=== PATIENT | male | born 1970 | race Caucasian/White ===

== ENCOUNTER 2024-09-18 22:12 | Emergency (ER) | payer BC, SELFPAY ==
[2024-09-18 22:17] VITALS: BP 131/83; PULSE 91; RESP 18; TEMP 36.6; O2SAT 96; BMI 39.0
[2024-09-18 23:59] VITALS: BP 109/71; PULSE 90; RESP 16; TEMP 36.8; O2SAT 97
--- NOTE | 2024-09-19 00:24 | ED.EXTPRO ---
HPI - Extremity Problem General Chief complaint: Extremity Problem Stated complaint: R elbow inj Time Seen by Provider: 09/19/24 00:24 Source: patient Mode of arrival: ambulatory Limitations: no limitations History of Present Illness ED Provider: Dr. Sam Morris HPI Narrative: 54-year-old male who presents emergency department for evaluation of infected right olecranon bursitis. Patient states that he fell and landed on his right elbow on 09/07/2024. Patient states that he developed swelling over the elbow but did not have significant pain. He states that on , 09/12/2024 (1 week prior) he developed redness with increased warmth over the elbow. Patient states that on Monday09/15/2024 he had a video consult with his provider and was started on cefadroxil b.i.d. for 7 days. He states he has been taking the medication for 3 days. He did talk to his PCP who recommended that he get seen so he went to an urgent care clinic. They evaluated him and referred him to the emergency department for evaluation. He denied fever, chills, fatigue, weakness, nausea, vomiting or diarrhea. He states that he can move his elbow without any difficulty and he was not having pain. Related Data Previous Rx's ?Medication ?Instructions ?Recorded doxycycline hyclate 100 mg tablet 100 mg PO Q12H 7 days #14 tabs 09/19/24 Allergies Allergy/AdvReac Type Severity Reaction Status Date / Time No Known Allergies Allergy Verified 09/18/24 22:20 [No Known Allergies*] Review of Systems Review of Systems: Yes all other systems are reviewed and are negative PMFSH Social History Social History Advance Directives: No Advance Directives Information Provided: No Do you have a plan to hurt others: No Plan Physical Exam Vital Signs: Vital Signs: Last Vital Signs Temp 98.3 F 09/19/24 00:45 Pulse 90 09/19/24 00:45 Resp 16 09/19/24 00:45 BP 109/71 09/19/24 00:45 Pulse Ox 97 09/19/24 00:45 O2 Del Method Room Air 09/19/24 00:45 BMI result Body Mass Index 39.0 Vital signs were normal Extremity exam: Patient's right elbow is swollen consistent with bursitis, there is increased warmth over the elbow. Patient has nonspecific dermatitis to both extremities which she has a red appearance to them. The dermatitis is not warm to the touch. He has full range of motion of his right elbow with no limitation and no pain. Medications Administered Discontinued Medications Generic Name Dose Route Start Last Admin Trade Name Helen PRN Reason Stop Dose Admin Doxycycline Monohydrate 100 mg 09/19/24 00:34 09/19/24 00:38 Doxycycline Monohydrate 100 Mg Capsule PO 09/19/24 00:35 100 mg ONCE ONE Administration Medical Decision Making Medical Decision Making [facility] Narrative: 54-year-old male with no significant past medical history who fell proximally 2 weeks prior landing in his right elbow and developed a traumatic bursitis, 1 week prior he noticed increased warmth and redness to the Versed and was started on antibiotics 3 days prior. He states that the redness has not gotten worse but has not improved. He did not have any concerning systemic symptoms. His PCP advised him to get re-evaluated and he went to an urgent care clinic and was referred to the emergency department. Vital signs were normal. Physical examination olecranon bursitis with increased warmth compared to the left elbow, he does have chronic erythematous dermatitis of both arms which is not warm to the touch. Differential diagnosis: ?Includes but is not limited to traumatic bursitis, infected bursitis, cellulitis, dermatitis Course: 00:48 The patient's findings are consistent with a traumatic right olecranon bursitis which now appears to be an infectious bursitis. Patient does have chronic, symmetric dermatitis to both upper extremities but I do not think that he was cellulitis at this time. The patient has been on a cephalosporin- cefadroxil for 3 days with no significant improvement however patient does not have adequate coverage for MRSA therefore I added doxycycline 100 mg q.12 hours x7 days to his antibiotic regimen. He was given his 1st dose doxycycline here in the emergency department. Patient was advised to use a heating pad on low 4 times a day to help improve the blood flow to the bursa area. Patient will need to follow-up with our orthopedic providers for re-evaluation and at this time I do not think that the bursa needs to be drained. I I did discuss treatment and follow-up plan with the patient. Admission/Observation Consideration of admission/observation: Escalation of care including admission/observation considered (Yes) Prescription Management I considered prescription management with: Antibiotic (Doxycycline) Discharge Plan Discharge Clinical Impression: Olecranon bursitis, right elbow, Dermatitis, Infected olecranon bursa Patient Disposition: Home, Self-Care Additional Instructions: When you fell earlier in the month, he struck your elbow and caused your bursa to get inflamed (bursitis). This is called a traumatic bursitis. Your elbow is now very warm to the touch and I believe that you have a bacterial infection of the bursa. Complete the course of cefadroxil as prescribed by your provider. I am going to increase your antibiotic coverage and start you on a new medication called doxycycline. Take doxycycline 100 mg, 1 pill every 12 hours for 7 days Use a heating pad on low for 15 minutes 4 times a day to increase the blood flow to the area of your elbow to help the healing process. I want you to follow-up with our orthopedic providers for re-evaluation in 4-5 days. Call their this morning to schedule an appointment Please return to the emergency department if you developed fever, chills, weakness, fatigue or if your elbow is becoming more painful, lower red or swollen Please return to the emergency department if your symptoms get worse or if you develop any symptoms that are concerning to you. Prescriptions: New doxycycline hyclate 100 mg tablet 100 mg PO Q12H 7 Days Qty: 14 0RF Referrals: Denilson Sandy MD [Physician] - 5 days (Traumatic bursitis which now appears to be infected, on cefadroxil x3 days with minimal improvement, I added doxycycline 100 mg b.i.d. x7 days. Needs follow-up in 3-5 days for re-evaluation. ) Interventions: ED Discharge Assessment Last Done: 09/19/24 00:45 Discharge Date/Time: 09/19/24 00:51 Print Language: Hebrew
[2024-09-19] MEDS: Doxycycline Monohydrate 100 MG CAPSULE PO (00:38)
[2024-09-19 00:45] VITALS: BP 109/71; PULSE 90; RESP 16; TEMP 36.8; O2SAT 97
== END 2024-09-19 00:51 | disposition home or self-care (01) ==
PROVIDERS: Emergency Provider Emergency Medicine Emergency Medical Services
DX: M70.21 Olecranon bursitis, right elbow (principal); L30.3 Infective dermatitis; Z79.899 Other long term (current) drug therapy
CPT/HCPCS: 99283; 99284

== ENCOUNTER 2024-09-20 14:17 | Outpatient (AMB) | payer BC, OTHER, SELFPAY ==
[2024-09-20 14:19] VITALS: BP 122/74; PULSE 74; O2SAT 96; BMI 38.9
--- NOTE | 2024-09-20 14:19 | A.OFFPC_ITS ---
Vital Signs 09/20/24 14:19 Height 6 ft Weight 287 lb BMI 38.9 BP 122/74 Blood Pressure Location Lt brachial Position Sitting Pulse 74 Pulse Source Pulse Oximeter Pulse Oximetry (%) 96 Oxygen Delivery Method Room Air Intake Visit Reasons: Rt arm fall/injury Allergies No Known Allergies [No Known Allergies*] Allergy (Verified 09/20/24 14:53) Medication List - Last Reconciled 09/20/24 by Louise Lindsay PA-C doxycycline hyclate 100 mg PO Q12H 7 days Tobacco use date assessed: 09/20/24 Dental Screening Dental Screen Date: 09/20/24 Did you have a dental visit in the last 12 months?: Yes Did you have a dental problem in the last 6 months where you did not have access to dental care?: No Was dental information given to patient?: Patient has dentist HPI Rt arm fall/injury HPI Details 54-year-old male coming to the office fo r the 1st time.? In review of the notes patient was seen in [facility] ED 09/19/2024 for evaluation of infected right olecranon bursitis after a fall on 09/07/2024 patient was started on doxycycline and continued on cefadroxil and advised to follow up with Orthopedics in 4-5 days. Patient states he was seen in the ER and has been continued on both medications. He does continue to have the nonspecific dermatitis on bilateral arms and does state he has sensitive skin so can not use certain lotions on his skin. He has been taking the antibiotics without issue and the swelling, warmth, and pain has gone down. He has not been seen in over 30 years. [facility] Medical History (Updated 09/20/24 @ 15:19 by Louise Lindsay PA-C) Ankle fracture, left Surgical History (Updated 09/20/24 @ 14:56 by Louise Lindsay PA-C) Status post ORIF of fracture of ankle Family History (Updated 09/20/24 @ 14:57 by Louise Lindsay PA-C) Mother Breast cancer Father Multiple sclerosis Social History Housing: House Patient Tobacco Use Status: Current everyday Tobacco user Tobacco use type: Smokeless Tobacco service: No Current occupational status: employed Cognitive needs: No Hearing needs: No Vision needs: No Questionnaire PHQ-9 Over the last 2 weeks, how often have you been bothered by any of the following problems? 1. Little interest or pleasure in doing things: not at all 2. Feeling down, depressed, or hopeless: not at all 3. Trouble falling or staying asleep, or sleeping too much: not at all 4. Feeling tired or having little energy: not at all 5. Poor appetite or overeating: not at all 6. Feeling bad about yourself - or that you are a failure or have let yourself or your family down: not at all 7. Trouble concentrating on things, such as reading the newspaper or watching television: not at all 8. Moving or speaking so slowly that other people could have noticed. Or the opposite - being so fidgety or restless that you have been moving around a lot more than usual: not at all 9. Thoughts that you would be better off or of hurting yourself in some way: not at all Total score: 0 Depression Screening Interpretation: Negative Depression Screening Done: Yes 61704 - PHQ-9 Billing: Yes Source: Developed by Drs. Ranjit Alvarez, Joy Ledezma, Juan R Mcfarlane and colleagues, with an educational umair from [employer]. Thrive Questionnaire Date Thrive assessed: 09/20/24 I am a: Patient What is your living situation today?: I have a steady place to live Within the past 12 months, did the food you bought not last and you didn't have the money to get more?: I choose not to answer this question Within the past 12 months, did you worry whether your food would run out before you got money to buy more?: I choose not to answer this question Do you have trouble paying for medicines?: No Do you have trouble getting transportation to medical appointments?: No Do you have trouble paying your heating and electricity bill?: No Do you have trouble taking care of your child, family member or friend?: No Do you have trouble with day-to-day activities such as bathing, preparing meals, shopping, managing finances, etc.?: No Are you currently unemployed and looking for a job?: No Are you interested in more education?: No Please select the resources that you would like help with: None Currently or been in a relationship where the following occur: I choose not to answer THRIVE Score: 0 AUDIT C Alcohol Use Questionnaire (AUDIT-C) 1. How often do you have a drink containing alcohol?: 2-3 times a week 2. How many drinks containing alcohol do you have on a typical day when you are drinking?: 1 or 2 3. How often do you have six or more drinks on one occasion?: Never Total Score: 3 GEORGE-7 AMB Questionnaire GEORGE-7 Date GEORGE - 7 assessed: 09/20/24 Feeling nervous, anxious, or on edge: 0 = Not at all Not being able to stop or control worryin = Not at all Worrying too much about different things: 0 = Not at all Trouble relaxin = Not at all Being so restless that it is hard to sit still: 0 = Not at all Becoming easily annoyed or irritable: 0 = Not at all Feeling afraid as if something awful might happen: 0 = Not at all Total GEORGE-7 score (0-4 normal; 5-9 mild; 10-14 moderate; 15-21 severe): 0 Source: Developed by Drs. Ranjit Alvarez, Joy Ledezma, Juan R Mcfarlane and colleagues, with an educational umair from [employer]. Review of Systems Const Denies body aches, Denies fatigue, Denies fever(s), Denies frequent falls and Denies weakness Eyes Reports no additional complaints and Denies change in vision ENT Reports no additional complaints Card Denies chest pain and Denies dyspnea Resp Denies cough and Denies dyspnea GI Denies abdominal pain, Denies dyspepsia, Denies diarrhea, Denies nausea and Denies vomiting Reports no additional complaints Musc Reports as per HPI, Denies back pain and Denies myalgias Skin/Breast Reports as per HPI Neuro Denies frequent falls and Denies weakness Psych Reports no additional complaints Endo Denies fatigue Physical exam (Primary Care) Vital Signs: Last Vital Signs Pulse 74 09/20/24 14:19 BP 122/74 09/20/24 14:19 Pulse Ox 96 09/20/24 14:19 Oxygen Delivery Method Room Air 09/20/24 14:19 BMI result Body Mass Index 38.9 Tobacco/Smoking Status: Tobacco use Status Tobacco use date assessed 09/20/24 09/20/24 14:22 Patient Tobacco Use Status Current everyday Tobacco 09/20/24 14:29 Tobacco use type Smokeless Tobacco 09/20/24 14:29 PHQ-9: PHQ-9 Score PHQ-9: Total score 0 09/20/24 14:22 Depression Screening Interpretation: Negative Thrive Assessment: Date of Thrive Assessment Date Thrive assessed 09/20/24 09/20/24 14:22 Currently or been in a relationship where the following occur: I choose not to answer Const General: cooperative, healthy appearing, comfortable and no acute distress Orientation/consciousness: patient oriented x3 HENMT Head: Yes normocephalic Ears: hearing grossly normal bilaterally General nose exam: Normal external nose present Eyes General: appearance normal, both eyes and all related structures Conjunctivae: conjunctivae normal Neck Neck: Yes full ROM and Yes no lymphadenopathy Resp Effort & Inspection: normal respiratory effort Auscultation: clear to auscultation bilaterally, no crackles, no rales, no rhonchi and no wheezes Cardio Rate: regular rate Rhythm: regular rhythm Skin Other: Scattered erythematous papules over bilateral upper extremities Neuro General: patient oriented x3 Gait exam (Neuro): Normal gait present Extrem Other: Swelling of right olecranon bursa without overlying warmth or redness General: Yes normal to inspection, Yes full ROM and No edema Psych Affect: normal affect Attitude: cooperative Insight: Good insight present (Psych) Judgement: Good judgement present (Psych) Coding Level of Care Code New Pt Level 3 (49658) Diagnoses Olecranon bursitis M70.20 Dermatitis L30.9 Screening for colorectal cancer Z12.11; Z12.12 Additional Codes PHQ-9 - 93775 - PHQ-9 Billing: Yes ([id number]) Assessment & Plan Assessment & Plan (1) Olecranon bursitis: Code(s): M70.20 - Olecranon bursitis, unspecified elbow Category: Medical Plan: Patient continues to have swelling however no redness or warmth over the bursa. Patient states the symptoms have significantly improved. Advised to continue on both antibiotics and follow up with Orthopedics. Patient has appointment scheduled orthopedics for 2 weeks. Reviewed red flag symptoms and when to present for re-evaluation. (2) Dermatitis: Code(s): L30.9 - Dermatitis, unspecified Category: Medical Plan: Patient has dermatitis on bilateral upper extremities. He states he has sensitive skin and this is chronic issue for him and the dermatitis seems to possibly be exacerbated by antibiotic use however he states this is a chronic issue. Reviewed red flag symptoms and when to present for re-evaluation. Advised patient to use gentle lotions and he is declining steroid creams at this time. (3) Screening for colorectal cancer: Code(s): Z12.11 - Encounter for screening for malignant neoplasm of colon; Z12.12 - Encounter for screening for malignant neoplasm of rectum Category: Medical Plan: Referral placed to Cologuard at this time. Plan We will follow up in 2 months for blood work and annual physical. This note was constructed using voice recognition software. While every effort has been made to ensure accuracy and link knitting machine operator, still areas may have been included sometimes these areas may affect the content or meeting of the given symptoms. Total time spent caring for the patient today was 30 minutes. This includes time spent before the visit reviewing the chart, time spent during the visit, and time spent after the visit and documentation. Orders: Orders Lipid Panel Today Z00.00 - Encounter for general adult medical examination without abnormal findings Vitamin D 25-OH (D2 and D3) Today Z00.00 - Encounter for general adult medical examination without abnormal findings Free T4 (Free Thyroxine) Today Z00.00 - Encounter for general adult medical examination without abnormal findings PSA, Ultra Sensitive Today Z00.00 - Encounter for general adult medical examin ation without abnormal findings Complete Blood Count Auto Diff Today Z00.00 - Encounter for general adult medical examination without abnormal findings Comprehensive Met. Panel Today Z00.00 - Encounter for general adult medical examination without abnormal findings TSH reflex Free T4 Today Z00.00 - Encounter for general adult medical examination without abnormal findings Vitamin B12 and Folate Today Z00.00 - Encounter for general adult medical examination without abnormal findings Referrals Cologuard Test Z12.11 - Encounter for screening for malignant neoplasm of colon
== END 2024-09-20 15:14 | disposition home or self-care (01) ==
DX: M70.20 Olecranon bursitis, unspecified elbow (principal); L30.9 Dermatitis, unspecified; Z12.11 Encounter for screening for malignant neoplasm of colon; Z12.12 Encounter for screening for malignant neoplasm of rectum

== ENCOUNTER → 2024-09-20 14:17 | Outpatient (BNVA) | payer BC, OTHER, SELFPAY | DX: M70.20 Olecranon bursitis, unspecified elbow (principal); L30.9 Dermatitis, unspecified | CPT/HCPCS: 96127 ==